=== PATIENT | female | born 1990 | race Two or more races ===

== ENCOUNTER → 2019-11-15 | Outpatient (CLI) | payer OTHER | END | disposition home or self-care (01) | LOC: PRENATAL 09:10 | PROVIDERS: ATTEND Obstetrics & Gynecology Maternal & Fetal Medicine | DX: O35.3XX0 Maternal care for (suspected) damage to fetus from viral disease in mother, not applicable or unspecified (principal); O09.92 Supervision of high risk pregnancy, unspecified, second trimester; Z36.89 Encounter for other specified antenatal screening ==